=== PATIENT | female | born 1980 | race Asian ===

== ENCOUNTER 2017-01-15 12:21 | Emergency (ER) | payer SELFPAY ==
[~2017-01-15] VITALS: Ht 170.2 cm; Wt 77.0 kg
[2017-01-15] MEDS ORDERED: LAM25 PO (12:27)
[2017-01-15] MEDS ORDERED: CARB200T PO (12:27)
[2017-01-15] MEDS ORDERED: OLAN5TAB3 PO (12:27)
[2017-01-15] MEDS ORDERED: ACETAMINOPHEN 325MG TABLET PO ONE (18:15)
[2017-01-15] MEDS ORDERED: IBUPROFEN 400MG TABLET PO ONE (18:15)
[2017-01-15 18:51] VITALS: BP 124/93
== END 2017-01-15 21:00 | disposition home or self-care (01) ==
LOC: ER 13:02
DX: M79.602 Pain in left arm (principal); F31.9 Bipolar disorder, unspecified
CPT/HCPCS: 99283